=== PATIENT | male | born 1995 | race American Indian/Alaskan Native ===

== ENCOUNTER 2020-08-07 15:05 | Emergency (ER) | payer SELFPAY ==
[2020-08-07 15:23] VITALS: BP 162/88
--- NOTE | 2020-08-07 16:20 | Emergency Department Report ---
- General Chief complaint: Skin/Abscess/Foreign Body Stated complaint: BOILS ON BUTT Time Seen by Provider: 08/07/20 15:59 Source: patient Mode of arrival: Ambulatory Limitations: No Limitations - History of Present Illness Initial comments: 24-year-old male reports having a sore on his buttocks that is open and draining x3 days he denies fever chills. -: days(s) (3) Location: buttocks Quality: aching Improves with: none Associated symptoms: denies other symptoms Treatments Prior to Arrival: none - Related Data Previous Rx's Medication Instructions Recorded Last Taken Type Menthol/Camphor [[place] 1 applicatio TP QID PRN #1 tube 06/12/19 Unknown Rx Ointment] Naproxen [Naprosyn TAB] 500 mg PO BID PRN #30 tablet 06/12/19 Unknown Rx Sulfamethoxazole/Trimethoprim 1 each PO BID #14 tablet 08/07/20 Unknown Rx [Bactrim DS TAB] Allergies Allergy/AdvReac Type Severity Reaction Status Date / Time No Known Allergies Allergy Unverified 12/02/14 17:52 Abscess [facility]il [facility] Chief Complaint: Skin/Abscess/Foreign Body Stated Complaint: BOILS ON BUTT Time Seen by Provider: 08/07/20 15:59 Home Medications: Previous Rx's Medication Instructions Recorded Last Taken Type Menthol/Camphor [[place] 1 applicatio TP QID PRN #1 tube 06/12/19 Unknown Rx Ointment] Naproxen [Naprosyn TAB] 500 mg PO BID PRN #30 tablet 06/12/19 Unknown Rx Sulfamethoxazole/Trimethoprim 1 each PO BID #14 tablet 08/07/20 Unknown Rx [Bactrim DS TAB] Allergies/Adverse Reactions: Allergies Allergy/AdvReac Type Severity Reaction Status Date / Time No Known Allergies Allergy Unverified 12/02/14 17:52 ED Review of Systems ROS: Stated complaint: BOILS ON BUTT Other details as noted in HPI ED Past Medical Hx - Past Medical History Previous Medical History?: Yes Additional medical history: Right knee Injury, Right foot injury, right leg injury - Surgical History Past Surgical History?: No - Social History Smoking Status: Current Every Day Smoker Substance Use Type: Alcohol, Marijuana - Medications Home Medications: Home Medications Medication Instructions Recorded Confirmed Last Taken Type Menthol/Camphor [[place] 1 applicatio TP QID PRN #1 tube 06/12/19 Unknown Rx Ointment] Naproxen [Naprosyn TAB] 500 mg PO BID PRN #30 tablet 06/12/19 Unknown Rx Sulfamethoxazole/Trimethoprim 1 each PO BID #14 tablet 08/07/20 Unknown Rx [Bactrim DS TAB] ED Physical Exam - General Limitations: No Limitations General appearance: alert, in no apparent distress - Head Head exam: Present: atraumatic - Eye Eye exam: Present: normal appearance - ENT ENT exam: Present: normal exam - Respiratory Respiratory exam: Present: normal lung sounds bilaterally. Absent: respiratory distress, wheezes - Cardiovascular Cardiovascular Exam: Present: regular rate, normal heart sounds - GI/Abdominal GI/Abdominal exam: Present: soft - Extremities Exam Extremities exam: Present: normal inspection - Back Exam Back exam: Present: normal inspection - Neurological Exam Neurological exam: Present: alert, oriented X3 - Psychiatric Psychiatric exam: Present: normal affect - Skin Skin exam: Present: warm, other (right buttocks open wound circular with yellow eschar no drainage. Left and right buttocks with multiple scarring from previous abscesses. ) ED Course Vital Signs 08/07/20 15:21 Temperature 99.6 F Pulse Rate 103 H Respiratory 16 Rate Blood Pressure 162/88 O2 Sat by Pulse 99 Oximetry ED Medical Decision Making - Medical Decision Making Chronic skin abscesses. Open wound to right buttocks flat no drainage at this time . Wound care instructions Bactrim DS Critical care attestation.: If time is entered above; I have spent that time in minutes in the direct care of this critically ill patient, excluding procedure time. ED Disposition Clinical Impression: Skin abscess Qualifiers: Site of cutaneous abscess: buttock Qualified Code(s): L02.31 - Cutaneous a bscess of buttock Disposition: DC-01 TO HOME OR SELFCARE Is pt being admited?: No Does the pt Need Aspirin: No Condition: Stable Instructions: Abscess (ED) Additional Instructions: Take antibiotic as prescribed. Wash area with soap and water twice a day. Apply clean dry dressing. Take over the counter Advil, or tylenol for pain as directed by package insert Prescriptions: Sulfamethoxazole/Trimethoprim [Bactrim DS TAB] 1 each PO BID #14 tablet Referrals: RASHAD JACOB MD [Staff Physician] - 3-5 Days Time of Disposition: 16:17
== END 2020-08-07 16:32 | disposition home or self-care (01) ==
LOC: ED 15:05
DX: L02.31 Cutaneous abscess of buttock (principal); F17.200 Nicotine dependence, unspecified, uncomplicated; F12.90 Cannabis use, unspecified, uncomplicated; Z79.899 Other long term (current) drug therapy
CPT/HCPCS: 99282

== ENCOUNTER 2021-05-17 20:59 | Emergency (ER) | payer SELFPAY ==
[2021-05-18 00:44] VITALS: BP 163/91
--- NOTE | 2021-05-18 01:07 | Emergency Department Report ---
Chief Complaint: Upper Respiratory Infection Stated Complaint: DINORA/HEADACHE/CHILLS Time Seen by Provider: 05/18/21 00:53 - HPI History of Present Illness: Patient is a 23-year-old male presents emergency room with complaints of generalized vague symptoms for 2 weeks. He states he has associated nausea and occasionally has vomiting in the morning. He states he has chills, headache, nasal congestion, sore throat. He denies any difficulty swallowing, diarrhea, fever, chest pain, shortness of breath, abdominal pain. he has not taken any medication for his symptoms. No past medical history. No allergies to medications. He is having normal bowel movements. He is tolerating p.o. intake without difficulty and has a bag of chips in his exam room. Vitals are stable All other systems reviewed and are negative On exam: Non toxic appearing, no acute distress atraumatic, normocephalic normal appearance of the eyes, PERRL, EOMI, no periorbital edema or ecchymosis moist mucus membranes, normal TMs and canals bilaterally, normal oropharynx, no meningeal signs, no lymphadenopathy regular heart rate and rhythm, no gallops, no rubs, no murmurs breath sounds are clear bilaterally, no w/r/r, no respiratory chest, no accessory muscle use, no stridor Abdomen is soft, nontender, no distention, no guarding, no rebound, rigidity, normal bowel sounds A&O x4, no focal neuro deficit skin is warm, dry, intact pt is presenting with vague symptoms His vitals are stable He has no abdominal tenderness on exam, his breath sounds are clear bilaterally, normal oropharynx, normal TMs and canals He has no clinical signs of bacterial pneumonia or bacterial bronchitis No clinical signs of bacterial sinusitis he is afebrile, no tachycardia, no hypoxia, no hypotension Patient will be referred to primary care doctor for further evaluation Patient does not appear to have an emergent medical condition at this time Patient given the appropriate resources Discuss strict return precautions with patient Medical screen examination performed there is no threat to life of this time - Exam Vital Signs: Vital Signs 05/18/21 00:23 Temperature 97.9 F Pulse Rate 51 L Respiratory 16 Rate Blood Pressure 163/91 O2 Sat by Pulse 100 Oximetry MSE screening note: Focused history and physical exam performed. Due to findings the following was ordered: ED Disposition for MSE Clinical Impression: Encounter for medical screening examination Disposition: TO HOME OR SELFCARE Is pt being admited?: No Does the pt Need Aspirin: No Condition: Stable Additional Instructions: May take Zantac and Pepto-Bismol to help with your GI symptoms. May take Mucinex, Claritin, Flonase to help with your URI/cold symptoms. Follow-up with your primary care doctor for examination. Increase your fluid intake. Return to emergency room for any new or symptoms. Referrals: RASHAD JACOB MD [Staff Physician] - 2-3 Days [facility] [Provider Group] - 2-3 Days Time of Disposition: 01:07 Print Language: [place]
== END 2021-05-18 02:08 | disposition home or self-care (01) ==
LOC: ED 20:59
DX: Z00.00 Encounter for general adult medical examination without abnormal findings (principal)
CPT/HCPCS: 99282